=== PATIENT | female | born 1990 | race Caucasian/White ===

== ENCOUNTER 2016-06-18 08:12 | Inpatient (IN) | payer OTHER ==
[~2016-06-18 08:12] MED LIST: ELECTROLYTE-148 SOLN 1,000 ML IV SCH
--- NOTE | 2016-06-18 08:49 | HP ---
Past Medical History - Primary Care Physician PCP:: Vicki Echevarria - Admission Chief Complaint: 25 yo P1001 @ 38.2 wks presents for IUGR induction, Denies headache, visual changes, vaginal bleeding, LOF; She has normal movement and some mild contructions History of Present Illness: Problems 1.Persistant IUGR, last US 9%, elevated dopplers - TORCH panel and chromosomal screens are negative 2. Short cervix, on Progesterone suppositories till 36 weeks History Source: Patient Limitations to Obtaining History: No Limitations - Past Medical History ...: 2 ... Weeks Gestation by Dates: 38 - Past Surgical History Past Surgical History: Yes: None (Breast augmentation) Hx Myomectomy: No Hx Transabdominal Cerclage: No Additional Surgical History: Breast augmentation - Smoking History Smoking history: Never smoked Have you smoked in the past 12 months: No Home Medications - Allergies Allergies/Adverse Reactions: Allergies Allergy/AdvReac Type Severity Reaction Status Date / Time No Known Allergies Allergy Verified 06/18/16 09:39 - Home Medications Home Medications: Ambulatory Orders Vitamins (Sjr) - 1 tab PO DAILY 05/16/16 Physical Exam - Maternity Constitutional: Yes: Well Nourished HENT: Yes: WNL Neck: Yes: WNL Cardiovascular: Yes: WNL Breast(s): Yes: WNL - Abdominal Exam/OB Number of Fetuses: Single Presentation: Vertex Contractions: Yes Regularity: Irregular Intensity: Mild Monitor Mode: External Heart Rate Location: [facility] Category: I Accelerations: Uniform Decelerations: None - Vaginal Exam/OB Vaginal Bleediing: No Dilatation (cm): 3 Effacement (%): 80% Amniotic Membrane Status: Intact Presentation: Vertex/Position Station: -3 - Physical Exam Musculoskeletal: Yes: WNL Extremities: Yes: WNL Edema: No Integumentary: Yes: WNL Deep Tendon Reflex Grade: Normal +2 ...Motor Strength: WNL Psychiatric: Yes: WNL Assessment/Plan 25 yo P1 @ 38wks with 9% IUGR Admit for induction of labor with Pitocin Current MF status reasuring IFVF, NPO Pain meds as needed
[2016-06-18 09:30] LABS: BASOPHIL 0.2 % (0-2.0); EOSINOPHIL 1.1 % (0-4.5); MCH 30.8 pg (25.7-33.7); MCHC 33.8 g/dl (32.0-36.0); MEAN PLT VOLUME 7.9 fl (7.5-11.1); NEUTROPHILS 69.5 % (42.8-82.8); PLATELET COUNT 308 K/MM3 (134-434); RDW 12.9 % (11.6-15.6); WHITE BLOOD COUNT 9.1 K/mm3 (4.0-10.0)
[2016-06-18 09:38] VITALS: BMI 29.0
[2016-06-18 09:41] LABS: INR 0.99 (0.82-1.09); PROTHROMBIN TIME (PATIENT) 10.9 SEC (9.98-11.88)
[2016-06-18 09:43] LABS: ACTIVATED PTT 26.9 SECONDS (26.9-34.4)
[2016-06-18] MEDS ORDERED: OXYTOCIN 15 UNITS/ LR 250 ML 250 ML IVPB SCH (09:45)
[2016-06-18 09:52] LABS: CALCIUM 8.4 mg/dL (8.5-10.1); COCKROFT - GAULT 136.6545; CREATININE 0.7 mg/dL (0.55-1.02)
[2016-06-18] MEDS ORDERED: TUBERCULIN PPD 5 TU/0.1ML SYRINGE (IN PATIENT USE ONLY) ID ONE (10:00)
[2016-06-18 10:25] LABS: HIV 1 & 2 AB NEGATIVE; HIV 1 AGp24 NEGATIVE
[2016-06-18] MEDS: PRENATAL VITAMINS W/ FOLIC ACID TABLET (FP) PO SCH (11:46)
[2016-06-18] MEDS ORDERED: FENTANYL/BUPIVACAINE/NS/PF - PCEA - 50 ML DISP.SYRIN EP SCH (14:30)
--- NOTE | 2016-06-18 15:03 | PN ---
Delivery - Delivery Vaginal Delivery: No Problems Type of Anesthesia: Epidural Episiotomy/Laceration: None EBL (cc): 300 Delivery, Single - Stages of Labor Date of Delivery: 06/18/16 Time of Delivery: 14:55 Date Placenta Delivered: 06/18/16 Time Placenta Delivered: :57 Placenta: Yes: Spontaneous - Condition of Purification Supervisor/Mobile Developer Present: No Gender: Female Weight: 5 lb 7 oz Position: Left, OA - 1 Minute Total Score: 9 5 Minutes Total Score: 9 - [place] Feeding Plan Initial Plan: Exclusive throughout hospitalization Remarks - Remarks Remarks: Uncomplicated of baby girl from MANJIT position tight nuchal cord noted, clamped and cut at perineum anterior shoulder (right) and left shoulder delivered without difficulty along with remainder of Apgars 9/9 no laceration appreciated sponge count correct after delivery mom stable baby to well baby nursery
[2016-06-18] MEDS ORDERED: BENZOCAINE 28 GM HEMORRHOIDAL OINTMENT TP PRN (16:35)
[2016-06-18] MEDS ORDERED: WITCH HAZEL 50% (TUCKS) 40 PAD/JAR PAD TP PRN (16:35)
[2016-06-18] MEDS ORDERED: BENZOCAINE 20% 57 GM BOTTLE TP PRN (16:35)
[2016-06-18] MEDS ORDERED: BISACODYL 10 MG SUPP.RECT RC PRN (16:35)
[2016-06-18] MEDS ORDERED: METHYLERGONOVINE MALEATE 0.2 MG/1 ML AMP IM PRN (16:35)
[2016-06-18] MEDS ORDERED: D5W-LR W/ 20 UNITS OXYTOCIN 1,000 ML IV SCH (16:45)
[2016-06-18] MEDS: IBUPROFEN 600 MG TABLET (FP) PO PRN ×2 (17:46→21:48)
[2016-06-18] MEDS: ACETAMINOPHEN 325 MG TABLET (FP) PO PRN ×2 (17:47→21:47)
[2016-06-18] MEDS: SENNOSIDES/DOCUSATE COMBO (SENNA PLUS) TABLET (UD) PO PRN (21:48)
--- NOTE | 2016-06-19 07:13 | PN ---
Post Progress Note - Subjective Subjective: 25 yo P2 s/p no complains, voiding, ambulating, tolerating regular diet Post Day: 1 Type of Delivery: Vital Signs: Vital Signs Temperature 98.1 F 06/19/16 06:00 Pulse Rate 74 06/19/16 06:00 Respiratory Rate 18 06/19/16 06:00 Blood Pressure 101/67 06/19/16 06:00 O2 Sat by Pulse Oximetry (%) 100 06/18/16 15:45 Breast Exam: Yes: Soft Uterus: Yes: Fundus Firm Abdomen/GI: Yes: Abdomen soft, Tolerating PO Lochia: Yes: Rubra Lochia, amount: Small Extremities: Yes: Calves non-tender Perineum: Yes: Intact Activity: Ambulating - Labs Labs: CBC WBC 9.1 K/mm3 (4.0-10.0) 06/18/16 08:48 RBC 3.26 M/mm3 (3.60-5.2) L 06/18/16 08:48 Hgb 10.0 GM/dL (10.7-15.3) L 06/18/16 08:48 Hct 29.6 % (32.4-45.2) L 06/18/16 08:48 MCV 91.0 fl (80-96) 06/18/16 08:48 MCHC 33.8 g/dl (32.0-36.0) 06/18/16 08:48 RDW 12.9 % (11.6-15.6) 06/18/16 08:48 Plt Count 308 K/MM3 (134-434) 06/18/16 08:48 MPV 7.9 fl (7.5-11.1) 06/18/16 08:48 Neutrophils % 69.5 % (42.8-82.8) 06/18/16 08:48 Lymphocytes % 20.9 % (8-40) D 06/18/16 08:48 Monocytes % 8.3 % (3.8-10.2) 06/18/16 08:48 Eosinophils % 1.1 % (0-4.5) 06/18/16 08:48 Basophils % 0.2 % (0-2.0) 06/18/16 08:48 Assessment/Plan 25 yo P2 s/p VSS, Afibrile Doing well follow CBC cont OOB and routine care Breast feeding marine consultant to assist
[2016-06-19 07:27] LABS: BASOPHIL 0.5 % (0-2.0); EOSINOPHIL 0.9 % (0-4.5); MCH 30.4 pg (25.7-33.7); MCHC 33.4 g/dl (32.0-36.0); MEAN CELL VOLUME 91.3 fl (80-96); MEAN PLT VOLUME 7.9 fl (7.5-11.1); NEUTROPHILS 71.7 % (42.8-82.8); PLATELET COUNT 294 K/MM3 (134-434); RDW 13.1 % (11.6-15.6); WHITE BLOOD COUNT 11.4 K/mm3 (4.0-10.0)
[2016-06-19] MEDS: IBUPROFEN 600 MG TABLET (FP) PO PRN ×4 (07:56→21:46)
[2016-06-19] MEDS: ACETAMINOPHEN 325 MG TABLET (FP) PO PRN ×4 (07:57→21:49)
[2016-06-19] MEDS: PRENATAL VITAMINS W/ FOLIC ACID TABLET (FP) PO SCH (10:05)
[2016-06-19 13:59] VITALS: TEMP 97.9
[2016-06-19] MEDS: SENNOSIDES/DOCUSATE COMBO (SENNA PLUS) TABLET (UD) PO PRN (21:46)
[2016-06-20] MEDS: ACETAMINOPHEN 325 MG TABLET (FP) PO PRN (07:45)
[2016-06-20] MEDS: IBUPROFEN 600 MG TABLET (FP) PO PRN (07:46)
[2016-06-20 09:27] VITALS: BP 107/73; PULSE 73
[2016-06-20] MEDS: PRENATAL VITAMINS W/ FOLIC ACID TABLET (FP) PO SCH (10:00)
--- NOTE | 2016-06-20 11:06 | PN ---
Post Progress Note - Subjective Subjective: 25 yo P 2 now s/p no complains tolarating regular diet, voiding Post Day: 2 Type of Delivery: Vital Signs: Vital Signs Temperature 97.9 F 06/19/16 22:00 Pulse Rate 73 06/20/16 09:24 Respiratory Rate 18 06/20/16 09:24 Blood Pressure 107/73 06/20/16 09:24 O2 Sat by Pulse Oximetry (%) 100 06/18/16 15:45 Breast Exam: Yes: Soft Uterus: Yes: Fundus Firm Abdomen/GI: Yes: Abdomen soft, Tolerating PO Lochia: Yes: Rubra Lochia, amount: Small Extremities: Yes: Calves non-tender Perineum: Yes: Intact Activity: Ambulating - Labs Labs: CBC WBC 11.4 K/mm3 (4.0-10.0) H 06/19/16 06:00 RBC 3.26 M/mm3 (3.60-5.2) L 06/19/16 06:00 Hgb 9.9 GM/dL (10.7-15.3) L 06/19/16 06:00 Hct 29.7 % (32.4-45.2) L 06/19/16 06:00 MCV 91.3 fl (80-96) 06/19/16 06:00 MCHC 33.4 g/dl (32.0-36.0) 06/19/16 06:00 RDW 13.1 % (11.6-15.6) 06/19/16 06:00 Plt Count 294 K/MM3 (134-434) 06/19/16 06:00 MPV 7.9 fl (7.5-11.1) 06/19/16 06:00 Neutrophils % 71.7 % (42.8-82.8) 06/19/16 06:00 Lymphocytes % 20.1 % (8-40) 06/19/16 06:00 Monocytes % 6.8 % (3.8-10.2) 06/19/16 06:00 Eosinophils % 0.9 % (0-4.5) 06/19/16 06:00 Basophils % 0.5 % (0-2.0) 06/19/16 06:00 Assessment/Plan 25 yo P2 s/p VSS, Afibrile Doing well mild anemia, asked to continue PNV D/C home Nothing vaginally for 6 weeks RTO 6wks
--- NOTE | 2016-07-04 07:38 | DS ---
Physical Exam-FOAM CUTTING SUPERVISOR Vital Signs: Vital Signs Temperature 97.9 F 06/19/16 22:00 Pulse Rate 73 06/20/16 09:24 Respiratory Rate 18 06/20/16 09:24 Blood Pressure 107/73 06/20/16 09:24 O2 Sat by Pulse Oximetry (%) 100 06/18/16 15:45 Constitutional: Yes: Well Nourished Eyes: Yes: WNL HENT: Yes: WNL, Tonsillar Exudate Cardiovascular: Yes: WNL Respiratory: Yes: WNL Gastrointestinal: Yes: WNL Renal/: Yes: WNL Pelvis: Yes: WNL External Genitalia: Yes: Normal Vaginal Exam: Yes: Normal ....Post : Yes: Uterus firm, Uterus non-tender Breast(s): Yes: WNL Musculoskeletal: Yes: WNL Extremities: Yes: WNL Integumentary: Yes: WNL Neurological: Yes: WNL ...Motor Strength: WNL Psychiatric: Yes: WNL Labs: CBC, BMP 06/19/16 06:00 06/18/16 08:48 Delivery - Delivery Vaginal Delivery: No Problems Type of Anesthesia: Epidural Episiotomy/Laceration: None EBL (cc): 300 Delivery, Single - Stages of Labor Date 1st Stage Initiatied: 06/18/16 Time 1st Stage Initiated: 12:30 Date 2nd Stage Initiated: 06/18/16 Time 2nd Stage Initiated: 14:20 Date of Delivery: 06/18/16 Time of Delivery: 14:55 Time Placenta Delivered: 14:57 Placenta: Yes: Spontaneous - Condition of Special Loan Officer/Cork Compounder Present: No Infant Gender: Female Weight: 5 lb 7 oz Position: Left, OA Total Hours ROM (Hrs/Mins): 37 MINUTES - 1 Minute Total Score: 9 5 Minutes Total Score: 9 - [place] Feeding Plan Initial Plan: Exclusive throughout hospitalization Discharge Summary Reason For Visit: ADMIT Condition: Good - Instructions Diet, Activity, Other Instructions: Physical activity Resume your normal everyday activity as tolerated no heavy lifting or exercise until seen by your surgeon. You may walk unlimited maria de jesus of and climb stairs. You may resume driving the car when you feel safe and comfortable behind the wheel. No sexual activity as instructed. Wound care If you have a bandage, leave it on, and keep dry for 48-72 hours. After that time discard the outer bandage. If they are tapes on the skin under the out of bandage leave them in place. They will peel off in the next 7 to 10 days. Do Not Peel them off. You may shower the day after surgery. If there are tapes present on the skin, you may shower over them. Diet There are no dietary restrictions. Eat healthy, high-fiber foods. Drink 6 to 8 glasses of liquid each day. This will assist in keeping your bowels are regular. Pain management You may take Tylenol or acetaminophen or Ibuprofen (for example, Motrin, Advil etc.) from my pain prescription medication is ordered should be taken as prescribed for moderate to severe pain. Call MD for any of the following: Severe pain not relieved by medication Fever of 101 or higher Excessive bleeding or drainage on dressing Inability to urinate Referrals: Vicki Echevarria MD [Staff Physician] - Disposition: HOME - Home Medications Comprehensive Discharge Medication List: Ambulatory Orders Vitamins (Sjr) - 1 tab PO DAILY 05/16/16 Ibuprofen [Motrin -] 600 mg PO QID #28 tablet 06/20/16
== END 2016-06-20 14:37 | disposition home or self-care (01) | DRG 775 ==
LOC: JLDR 08:12 → J3W 16:15
PROVIDERS: ADMIT Obstetrics & Gynecology; ATTEND Obstetrics & Gynecology
PROC: 10E0XZZ Delivery of Products of Conception, External Approach (ICD-10-PCS; principal; 2016-06-18)
DX: O36.5930 Maternal care for other known or suspected poor fetal growth, third trimester, not applicable or unspecified (principal); O26.873 Cervical shortening, third trimester; O99.02 Anemia complicating childbirth; Z3A.38 38 weeks gestation of pregnancy; Z37.0 Single live birth
CPT/HCPCS: 36415; 59409; 80048; 85025; 85610; 85730; 86593; 86850; 86900; 86901; 87389

== ENCOUNTER 2022-04-15 23:45 | Emergency (ER) | payer OTHER ==
[2022-04-16 00:08] VITALS: BP 113/65; PULSE 83; RESP 18; TEMP 98.4; BMI 24.7
[2022-04-16 03:04] LABS: BASO % 0.4 % (0-2.0); EOS % 0.9 % (0-4.5); HEMATOCRIT 31.7 % (32.4-45.2); HEMOGLOBIN 11.1 GM/dL (10.7-15.3); LYMPH % 27.3 % (8-40); MCHC 35.1 g/dl (32.0-36.0); MEAN CELL VOLUME 94.1 fl (80-96); MEAN PLT VOLUME 7.7 fl (7.5-11.1); MONO % 6.1 % (3.8-10.2); NEUT % 65.3 % (42.8-82.8); PLATELET COUNT 374 10^3/uL (134-434); RBC 3.37 M/mm3 (3.60-5.2); WHITE BLOOD COUNT 9.4 K/mm3 (4.0-10.0)
[2022-04-16 03:23] LABS: EPI CELLS 34 /uL (0-25.1); HYALINE CASTS 2 /uL (0-3.1); URINE APPEARANCE CLEAR; URINE BACTERIA >9,000 /uL (0-1359); URINE BILIRUBIN NEGATIVE (NEGATIVE); URINE COLOR YELLOW; URINE GLUCOSE (UA) NEGATIVE (NEGATIVE); URINE KETONE NEGATIVE (NEGATIVE); URINE LEUK ESTERASE 3+ (NEGATIVE); URINE NITRITE NEGATIVE (NEGATIVE); URINE PROTEIN NEGATIVE (NEGATIVE); URINE RBC 24 /uL (0-23.9); URINE WBC 2434 /uL (0-25.8)
[2022-04-16 03:24] LABS: ALBUMIN 3.2 g/dl (3.4-5.0)
[2022-04-16] MEDS ORDERED: CEPHALEXIN MONOHYDRATE 500 MG CAPSULE (UD) PO ONE (03:25)
[2022-04-16 03:27] LABS: CREATININE 0.5 mg/dL (0.55-1.3)
[2022-04-16] MEDS ORDERED: CEPHALEXIN MONOHYDRATE 500 MG CAPSULE (UD) ONE (03:27)
[2022-04-16 03:29] LABS: BILIRUBIN,TOTAL 0.2 mg/dL (0.2-1); TOT PROT 6.7 g/dl (6.4-8.2)
== END 2022-04-16 03:34 | disposition home or self-care (01) ==
LOC: JER 23:45
DX: O20.0 Threatened abortion (principal); O23.32 Infections of other parts of urinary tract in pregnancy, second trimester; N39.0 Urinary tract infection, site not specified; R11.2 Nausea with vomiting, unspecified; Z3A.14 14 weeks gestation of pregnancy
CPT/HCPCS: 36415; 76817-TC; 80053; 81003; 84702; 84703; 85025; 86850; 86900; 86901; 87086; 87186; 99284-25

== ENCOUNTER 2022-09-25 07:00 | Inpatient (IN) | payer OTHER ==
[2022-09-25 08:34] VITALS: BMI 30.2
[2022-09-25] MEDS: ELECTROLYTE-148 SOLN 1,000 ML IV SCH ×2 (08:50→16:30)
[2022-09-25] MEDS ORDERED: OXYTOCIN 30 UNITS in 0.9% NS 30 UNIT/500 ML INFUS.BAG IVPB SCH (09:15)
[2022-09-25] MEDS ORDERED: FENTANYL/BUPIVACAINE/NS/PF - PCEA - 50 ML DISP.SYRIN EP ONE (16:21)
[2022-09-25] MEDS ORDERED: LIDO 2%/EPI 1:200000 PRESRVFRE (20 ML SDVIAL) ONE (16:23)
[2022-09-25] MEDS ORDERED: BUPIVACAINE HCL/PF 0.25% (2.5MG/ML) 10 ML VIAL ONE (16:23)
[2022-09-25] MEDS ORDERED: NALOXONE HCL 0.4 MG/ML VIAL IVPUSH PRN (16:41)
[2022-09-25] MEDS ORDERED: FENTANYL/BUPIVACAINE/NS/PF - PCEA - 50 ML DISP.SYRIN EP SCH (16:45)
[2022-09-25] MEDS ORDERED: OXYTOCIN 20 UNITS in 0.9% NS 20 UNIT/1,000 ML INFUS.BAG IV ONE (17:40)
[2022-09-25] MEDS ORDERED: BISACODYL 10 MG SUPP.RECT RC PRN (18:13)
[2022-09-25] MEDS ORDERED: WITCH HAZEL 50% (TUCKS) 40 PAD/JAR PAD TP PRN (18:13)
[2022-09-25] MEDS ORDERED: BENZOCAINE 20% 57 GM BOTTLE TP PRN (18:13)
[2022-09-25] MEDS ORDERED: METHYLERGONOVINE MALEATE 0.2 MG/1 ML AMP IM PRN (18:13)
[2022-09-25] MEDS ORDERED: ACETAMINOPHEN 325 MG TABLET (FP) PO PRN (18:13)
[2022-09-25] MEDS ORDERED: BENZOCAINE 28 GM HEMORRHOIDAL OINTMENT TP PRN (18:13)
[2022-09-25] MEDS ORDERED: oxyCODONE HCL 5 MG TABLET PO PRN (18:13)
[2022-09-25] MEDS ORDERED: OXYTOCIN 20 UNITS in 0.9% NS 20 UNIT/1,000 ML INFUS.BAG IV SCH (18:15)
[2022-09-25 19:12] LABS: CORD BASE EXCESS -1.3 mmol/L (0-2); CORD HCO3 24.5 mmHg (20-29); CORD PCO2 44.9 mmHg (30-78); CORD pH 7.354 (7.14-7.44)
[2022-09-25] MEDS: IBUPROFEN 600 MG TABLET (FP) PO PRN (21:43)
[2022-09-25] MEDS: SENNOSIDES/DOCUSATE COMBO (SENNA PLUS) TABLET (UD) PO PRN (21:43)
[2022-09-26] MEDS: IBUPROFEN 600 MG TABLET (FP) PO PRN ×4 (03:29→20:35)
[2022-09-26 09:08] LABS: BASO % 0.2 % (0-2.0); EOS % 1.3 % (0-4.5); HEMATOCRIT 30.2 % (32.4-45.2); HEMOGLOBIN 10.3 GM/dL (10.7-15.3); LYMPH % 19.7 % (8-40); MCH 32.5 pg (25.7-33.7); MEAN CELL VOLUME 95.4 fl (80-96); MEAN PLT VOLUME 8.1 fl (7.5-11.1); MONO % 5.6 % (3.8-10.2); NEUT % 73.2 % (42.8-82.8); PLATELET COUNT 302 10^3/uL (134-434); RBC 3.17 M/mm3 (3.60-5.2); RDW 13.2 % (11.6-15.6); WHITE BLOOD COUNT 11.6 K/mm3 (4.0-10.0)
[2022-09-26] MEDS: PRENATAL VITAMINS W/ FOLIC ACID TABLET (FP) PO SCH (09:31)
[2022-09-26] MEDS ORDERED: SENNOSIDES 8.6MG TABLET (FP) PO PRN (20:07)
[2022-09-26] MEDS: SENNOSIDES/DOCUSATE COMBO (SENNA PLUS) TABLET (UD) PO PRN (20:35)
[2022-09-27] MEDS: PRENATAL VITAMINS W/ FOLIC ACID TABLET (FP) PO SCH (09:14)
[2022-09-27 10:12] VITALS: BP 104/71; PULSE 72; RESP 20; TEMP 97.6
== END 2022-09-27 14:45 | disposition home or self-care (01) | DRG 560 ==
LOC: JLDR 07:00 → J3W 20:26
PROVIDERS: ADMIT Obstetrics & Gynecology; ATTEND Obstetrics & Gynecology
PROC: 10E0XZZ Delivery of Products of Conception, External Approach (ICD-10-PCS; principal; 2022-09-25)
PROC: 10907ZC Drainage of Amniotic Fluid, Therapeutic from Products of Conception, Via Natural or Artificial Opening (ICD-10-PCS; 2022-09-25)
DX: O36.5930 Maternal care for other known or suspected poor fetal growth, third trimester, not applicable or unspecified (principal); Z3A.37 37 weeks gestation of pregnancy; Z37.0 Single live birth
CPT/HCPCS: 36415; 36600; 59025; 80048; 82803; 85025; 85610; 85730; 86780; 86803; 86850; 86900; 86901; G0463-25